=== PATIENT | female | born 1995 ===

== ENCOUNTER 2017-11-08 20:51 | Emergency (ER) | payer BC, OTHER ==
[2017-11-08 21:04] VITALS: BP 123/89
--- NOTE | 2017-11-08 21:14 | UC ---
Respiratory Complaint HPI - HPI Summary HPI Summary: Started coughing 5 days ago, since then has developed nasal congestion. Last night and today had temps above 102F. Did take sudafed this evening, also has a high resting pulse rate. - History of Current Complaint Chief Complaint: UCRespiratory Stated Complaint: ELEVATED TEMP, COUGH, COLD Time Seen by Provider: 11/08/17 21:07 Hx Obtained From: Patient Hx Last Menstrual Period: 3 months ?: No Onset/Duration: Gradual Onset Timing: Constant Severity Initially: Mild Severity Currently: Moderate Pain Intensity: 0 Character: Cough: Nonproductive Aggravating Factors: Allergens, Exertion, Deep Breaths Alleviating Factors: Bronchodilator Associated Signs And Symptoms: Positive: Fever, Chills, Wheezing, Dizziness, URI , Nasal Congestion. Negative: Calf Pain, Calf Swelling - Allergies/Home Medications Allergies/Adverse Reactions: Allergies Allergy/AdvReac Type Severity Reaction Status Date / Time No Known Allergies Allergy Verified 11/08/17 21:04 PMH/Surg Hx/FS Hx/Imm Hx Other Endocrine History: pcos Other Neurological History: TBI - Surgical History Surgical History: None - Family History Known Family History: Negative: Seizure Disorder - Social History Alcohol Use: Occasionally Substance Use Type: None Smoking Status (MU): Never Smoked Tobacco Review of Systems Constitutional: Fever, Chills, Fatigue Skin: Negative Eyes: Negative ENT: Sore Throat, Nasal Discharge Respiratory: Cough Cardiovascular: Negative Gastrointestinal: Negative Genitourinary: Negative Motor: Negative Neurovascular: Negative Musculoskeletal: Negative Neurological: Negative Psychological: Negative Is Patient Immunocompromised?: No All Other Systems Reviewed And Are Negative: Yes Physical Exam Triage Information Reviewed: Yes Appearance: No Pain Distress, Obese Vital Signs: Initial Vital Signs Temp 98.6 F 11/08/17 21:00 Pulse 119 11/08/17 21:00 Resp 18 11/08/17 21:00 BP 123/89 11/08/17 21:00 Pulse Ox 100 11/08/17 21:00 Vital Signs Reviewed: Yes Eye Exam: Normal Eyes: Positive: Conjunctiva Clear, Other: - R pupil fixed, 75% dilated ENT: Positive: Hearing grossly normal, Pharynx normal, Nasal congestion, TMs normal Dental Exam: Normal Neck exam: Normal Neck: Positive: Supple Respiratory Exam: Other - exam limited by obesity Respiratory: Positive: Chest non-tender, Lungs clear, No respiratory distress, No accessory muscle use, Other: - occ dry cough Cardiovascular: Positive: No Murmur, Tachycardia. Negative: RRR - tachycardia Musculoskeletal Exam: Normal Neurological Exam: Normal Neurological: Positive: Alert Psychological Exam: Normal Skin Exam: Normal UC Diagnostic Evaluation - Laboratory O2 Sat by Pulse Oximetry: 100 - Radiology Xray Interpretation: Positive (See Comments) Radiology Interpretation Completed By: ED Physician - R lower lobe pneumonia Respiratory Course/Dx - Differential Dx/Diagnosis Provider Diagnoses: Pneumonia. Elevated blood pressure due to discomfort Discharge - Sign-Out/Discharge Documenting (check all that apply): Discharge/Admit/Transfer - Discharge Plan Condition: Stable Disposition: HOME Prescriptions: Amoxicillin/Clavulanate TAB* [Augmentin TAB 875*] 875 mg PO BID #14 tab Patient Education Materials: Bacterial Pneumonia (ED) Referrals: Jesse Mayfield MD [Primary Care Provider] - 3 Days Additional Instructions: Please see your primary care provider next week. - Billing Disposition and Condition Condition: STABLE Disposition: HOME
[2017-11-08] MEDS ORDERED: Amoxicillin/Clavulanate TAB* 875 MG PO ONE (21:33)
--- NOTE | 2017-11-08 22:08 | RAD ---
Indication: Fever, cough and tachycardia. 2 views of the chest demonstrate no mediastinal shift. There is scoliosis of the thoracic spine with convexity towards the right with right basilar atelectasis. Lung field appears clear. IMPRESSION: Dextroscoliosis of the thoracic spine. Right basilar atelectasis is present.
== END 2017-11-08 21:44 | disposition home or self-care (01) ==
LOC: UCEAST 20:51
DX: J18.9 Pneumonia, unspecified organism (principal); R03.0 Elevated blood-pressure reading, without diagnosis of hypertension; R09.81 Nasal congestion; E28.2 Polycystic ovarian syndrome
CPT/HCPCS: 71046; 99202; A9270-GY; G0463